=== PATIENT | male | born 1960 | race Caucasian/White ===

== ENCOUNTER 2017-03-20 11:32 | Emergency (ER) | payer MEDICARE ==
[~2017-03-20] VITALS: Ht 167.6 cm; Wt 78.0 kg
[~2017-03-20 11:32] MED LIST: ADVAIR 10028 PUFF/IN IN; ASPIRIN81 MG PO; AUGMENTIN 875-1 EACH PO; BACTRIM 400 MG-1 TAB PO; BACTRIM DS 8001 TA1 PO; FLUTICASONE 50M16 GM; HABITROL21 MG/24 H TD; HCTZ/LISINOPRIL1 TA3 PO; LISINOPRIL20 MG PO; LORATADINE 10MG10 M1 PO; METOPROLOL SUC100 M1 PO; METOPROLOL SUC100 M2 PO; PRINIVIL10 M1 PO; [UNRECOGNIZED DRUG - OTHER] PO
--- OUTSIDE RECORDS SUMMARY | 2017-03-20 11:43 | External Medical Summary Rpt ---
Author Author OLEG[facility] Marquez, OLEGARIO Marquez Organization [employer] Address Unknown Phone Unavailable
--- OUTSIDE RECORDS SUMMARY | 2017-03-20 11:43 | External Medical Summary Rpt ---
Demographics Preferred Language Bulgarian Marital Status Unknown Jain Affiliation Unknown Race Unknown Ethnic Group Unknown Author Author , Organization [employer] Address Unknown Phone Unavailable Purpose Continuity of Care Document - through 2016 Immunization No patient found.
--- OUTSIDE RECORDS SUMMARY | 2017-03-20 11:43 | External Medical Summary Rpt ---
Demographics Preferred Language Sami Marital Status Unknown Protestant Affiliation Unknown Race Unknown Ethnic Group Unknown Author Author , Organization [employer] Address Unknown Phone Unavailable Purpose Continuity of Care Document - through 2016 Immunization No patient found.
--- OUTSIDE RECORDS SUMMARY | 2017-03-20 11:43 | External Medical Summary Rpt ---
Author Author , Organization [employer] Address Unknown Phone Unavailable Purpose Continuity of Care Document - through 2016 Problems Code Diagnosis DOS Provider Status I89.0 LYMPHEDEMA, NOT ELSEWHERE CLASSIFIED L03.90 CELLULITIS, UNSPECIFIED T63.301A TOXIC EFFECT OF UNSP SPIDER VENOM, ACCIDENTAL, INIT
--- OUTSIDE RECORDS SUMMARY | 2017-03-20 11:43 | External Medical Summary Rpt ---
Author Author [employer] Organization [employer] Address Unknown Phone Unavailable Purpose Continuity of Care Document - through 2016
[2017-03-20 12:52] LABS: HEMOGLOBIN 15.6 g/dL (14.1-18.0); LYMPH # 0.5 K/mm3 (0.7-4.5); LYMPH % 11.8 % (10-50)
--- NOTE | 2017-03-20 13:29 | Emergency Room Report ---
History of Present Illness Time Seen by MD Marks Presenting Problem in Triage Pt arrived:Walked Presenting Problem:PT REPORTS INFECTION IN L LEG- PT STATES NOTICED THAT LLE IN THIGH AREA WAS TENDER THIS MORNING. 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 N Clinical Suspician of Infection? N Mental Status: 1 - Regular (Normal Baseline) Sepsis Risk: Have you (or family members/close friends) recently traveled outside the [place]? N If Yes, where/when: Have you had exposure to infectious disease within the past month? N TB? Other? Specify: Comment The patient is known to me from a previous visit for this same problem. He has chronic lymphedema of his LEFT leg and gets recurrent cellulitis of his LEFT thigh, groin, and inguinal area. He says symptoms again started this morning. He is having chills as well as erythema, warmth, and tenderness in the areas of his proximal LEFT thigh and scrotum. No new edema of scrotum or leg, which are both chronically edematous. The patient usually gets intravenous vancomycin and Zosyn followed by oral Augmentin and Bactrim. He prefers this treatment today as well. ALLERGIES Coded Allergies: No Known Allergies (07/18/16) Home Medications Reported Medications SALMETEROL 50/FLUTICASONE 100 (Advair 100-50 Diskus) 1 PUFFS IN BID Aspirin 81 MG PO DAILY Hydrochlorothiazide/Lisinopr (Lisinopril 20MG & Hctz 25MG) 1 TAB PO DAILY Loratadine (Loratadine 10MG Tablet) 10 MG PO DAILY Metoprolol Succinate (Metoprolol Succinate XL) 100 MG PO DAILY #30 Lisinopril 20 MG PO DAILY #30 TAB History Medical History General CAD? No Angina: No OK: No Hypertension? Yes Hyperlipidemia? No CHF? No DVT? Yes PE? No COPD? Yes Asthma? No Anemia? No GERD? No Gastric ulcers? No GI Bleed? No Hernia? No Thyroid Problems? No Hypothyroidism? No CVA? No Seizures? No Diabetes? No Insulin Dependent: No Insulin Pump: No Home FSBS? No Renal Insuffiency? No End Stage Renal Disease? No UTI? No Stones? No BPH? No GB Disease: No Nephritic Syndrome? No Asplenia? No Hepatitis? No Sickle Cell Disease? No Arthritis? No Migraines? No Cataracts? No Glaucoma? No MRSA? No HIV? No TB? No Anxiety? No Depression? No Cancer? No More? Yes Additional hx: 1. 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 History of left leg and scrotal cellulitis Aug 2015 Immunization Hx DT/Tetanus > 10 Years Ago Flu Refused Pneumonia Refuses Surgical Hx Previous Surgery?Y I&D OF KNEE Family History Family Hx Diabetes No CAD Yes Hypertension Yes Hyperlipidemia No Cancer No TB No Social History Smoking Hx Smoker: Current Every Day Smoker Tobacco: Yes Type Cigarettes Packs/day < 1 Pack Alcohol Alcohol: No Review of Systems All Other Systems Reviewed and Negative Constitutional chills Musculoskeletal see HPI Physical Exam Vital Signs Vital Signs Date Time Temp Pulse Resp B/P Pulse O2 O2 Flow FiO2 Ox Delivery Rate 03/20 1444 111 18 152/77 97 03/20 1413 99.2 96 18 138/63 98 03/20 1327 100.0 101 18 158/76 96 03/20 1246 101 22 200/95 98 03/20 1157 99.3 102 22 212/131 97 General Appearance normal appearance, WD/WN Eye Exam - bilateral eye normal exam, bilateral eye PERRL, bilateral eye EOMI Ear, Nose, Throat hearing grossly normal, normal ENT inspection Neck normal inspection, non-tender, supple, full range of motion Respiratory Status Yes: trachea midline, chest symmetrical, non tender chest. No: respiratory distress. Lung Sounds bilateral: normal breath sounds, lungs clear. Cardiovascular normal exam, regular rate/rhythm, no peripheral edema, no gallop, no JVD, no murmur, no rub, normal peripheral pulses Peripheral Pulses Pulses normal Yes Gastrointestinal normal bowel sounds, normal exam, non tender, soft, no organomegaly Back normal inspection, no CVA tenderness, no vertebral tenderness Extremities erythema warmth and tenderness of proximal LEFT medial thigh. Male Genitalia edema of scrotum and genitalia. Erythema and warmth present. No signs of necrotizing section. 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 No Results/Orders Laboratory Tests 03/20/17 1235: Lactic Acid 2.1 H 03/20/17 1235: Sodium 136, Potassium 3.4 L, Chloride 103, Carbon Dioxide 23, BUN 10, Creatinine 1.0, Estimated Creat Clear 92, Estimated GFR (MDRD) 78, Glucose 95, Calcium 8.6, Total Bilirubin 1.0, AST 56 H, ALT 24, Alkaline Phosphatase 81, Total Protein 7.4, Albumin 3.1 L, Globulin 4.3 H, Albumin/Globulin Ratio 0.7 L, WBC 4.5 L, RBC 4.57 L, Hgb 15.6, Hct 46.3, MCV 101.3 H, RDW 12.3, Plt Count 143, MPV 6.2 L, Gran % 80.4 H, Gran # 3.6, Lymphocytes % 11.8, Monocytes % 6.7, Eosinophils % 0.9, Basophils % 0.2, Lymphocytes # 0.5 L, Monocytes # 0.3 , Eosinophils # 0.0, Basophils # 0.0, PUBS MCHC 33.6, MCH 34.1 H, Alcohols 36 Current Medication Orders Sig/Darby Start time Last Medication Dose Route Stop Time Status Admin Vancomycin HCl 1,500 MG ONCE ONE 03/20 1345 CKD 03/20 Sodium Chloride 250 ML IV 03/20 1544 1439 Piperacillin Sod/ 0 .STK-MED ONE 03/20 1335 DC Tazobactam Sod .ROUTE Sodium Chloride 100 ML .STK-MED ONE 03/20 1335 DC IV Miscellaneous 1 EACH CONSULT PHARMACY 03/20 1330 AC Information * 03/21 0126 Piperacillin Sod/ 4.5 GM ONCE ONE 03/20 1330 DC 03/20 Tazobactam Sod IV 03/20 1359 1350 Sodium Chloride 100 ML Sodium Chloride 10 ML PRN PRN 03/20 1230 AC IV 03/21 1225 Acetaminophen 500 MG ONCE ONE 03/20 1215 DC 03/20 PO 03/20 1216 1216 Acetaminophen 0 .STK-MED ONE 03/20 1205 DC PO Orders Procedure Date/time Status LACTIC ACID FOLLOW UP 03/20 1310 Active ALCOHOL 03/20 1226 Complete IV SALINE LOCK 03/20 1225 Active CULTURE, BLOOD 03/20 1225 Active LACTIC ACID 03/20 1225 Complete CBC WITH AUTO DIFF 03/20 1225 Complete CHEM 12 PROFILE 03/20 1225 Complete Departure Departure Disposition DC Home or Self Care(routine) Clinical Impression Primary Impression: Cellulitis Qualifiers: Site of cellulitis: extremity Site of cellulitis of extremity: lower extremity Laterality: left Qualified Code: L03.116 - Cellulitis of left lower limb Condition STABLE Referrals Clarita MENDES,[facility] (Family) Patient Instructions DI for Cellulitis -- Adult Prescriptions Current Visit Scripts Amoxicillin/Potassium Clav (Augmentin 875-125 Tablet) 1 EACH PO BID #20 TAB take as prescribed SULFAMETHOXAZOLE W/TRIMETHOPRI (Bactrim Ds Tab) 1 TAB PO BID #20 TAB ED Critical Care Critical Care No at 1508
[2017-03-20] MEDS ORDERED: AUGMENTIN 875-1 EACH PO (15:01)
[2017-03-20] MEDS ORDERED: BACTRIM DS 8001 TA1 PO (15:01)
[2017-03-20 16:45] VITALS: BP 117/71
[2017-03-23] MEDS ORDERED: ADVAIR 10028 PUFF/IN IN (08:55)
[2017-03-23] MEDS ORDERED: HCTZ/LISINOPRIL1 TA3 PO (13:05)
[2017-03-25] MEDS ORDERED: CUBICIN 500 MG500 MG IV (13:38)
== END 2017-03-20 16:46 | disposition home or self-care (01) ==
LOC: UTC 11:32 → ER 11:42 → UTC 11:42 → ER 16:46
PROVIDERS: Emergency Medicine
DX: L03.116 Cellulitis of left lower limb (principal); I10 Essential (primary) hypertension; J44.9 Chronic obstructive pulmonary disease, unspecified; Z72.0 Tobacco use
CPT/HCPCS: G6040; J2543; J3370